=== PATIENT | male | born 1955 | race Caucasian/White ===

== ENCOUNTER → 2018-07-11 08:43 | Outpatient (CLI) | payer BC ==
--- NOTE | ~2018-07-11 | ST ---
PATIENT:ОЛЬГА MILLARD MEDICAL RECORD: [id number] SEX: M LOCATION:[facility] ORDER #: ADMISSION DATE: 07/11/18 AGE OF PATIENT: 63 REFERRING PHYSICIAN: INTERPRETING PHYSICIAN: ROHAN LINDO MD REFERRING PHYSICIAN: Mathew Odell DO TECHNOLOGIST: ELENA Mckeon/RIGHT Jeremi (N) CLINICIAN: Noelle Bennett RN CLINICAL INDICATIONS: 1. Angina. 2. Shortness of breath. 3. Hypertension. 4. Hyperlipidemia. PHARMACOLOGIC STRESS PROCEDURE: 1. The patient performed a chemical stress test at rest receiving 0.4 mg Lexiscan by rapid IV injection over 10-15 seconds. 2. This was followed by 5 mL of normal saline both administered by above Clinician. 3. The tracer was administered IV 10-20 second post saline flush per protocol by Technologist. 4. The heart rate was 49 at baseline and was 74 at peak infusion. 5. The blood pressure response was normal. B/P was 114/74 at baseline, 139/78 at peak infusion. 6. The patient had no complaints of angina or anginal equivalent discomfort. 7. The patient had no complaints of shortness of breath following injection of Lexiscan. 8. No significant arrhythmias were observed. 9. The electrocardiogram demonstrated no ST changes suggestive of ischemia. 10. The electrocardiogram demonstrated a normal response to Lexiscan. 11. Normal response to Lexiscan pharmacological stress testing. REST STUDY: DATE: 07/11/18 HOUR: 09:15 RADIOISOTOPE: Cardiolite 99m Tc VOLUME: 0.6 mL ACTIVITY: 7.6 mCi METHOD OF ADMIN: IV SCAN STARTED: (hour) 10:20 STRESS STUDY: DATE: 07/11/18 HOUR: 10:35 RADIOISOTOPE: Cardiolite 99m Tc VOLUME: 0.6 mL ACTIVITY: 32.9 mCi METHOD OF ADMIN: IV SCAN STARTED: (hour) 11:30 GATED IMAGING: Gated SPECT reveals a preserved ejection fraction of 58% with decreased thickening and brightening throughout all segments. SPECT: SPECT imaging was performed using Cardiolite as the myocardial perfusion CARDIAC STRESS TEST [id number] ОЛЬГА MILLARD imaging agent. There is a mixed perfusion defect inferiorly, partially fixed and partially reversible. It includes the basal, mid, and apical inferior segments as well as the apex itself. There is reversibility throughout the entire defect. OVERALL IMPRESSION: 1. This is an abnormal nuclear stress test with mixed perfusion defect, partially fixed and partially reversible inferiorly and apically. 2. Gated SPECT reveals a preserved ejection fraction of 58%. 3. In this patient with ongoing symptomatology, the current scan does suggest the presence of hemodynamically significant coronary artery disease. 4. Would proceed with coronary angiography as a follow-up of this study. ROHAN LINDO MD at 6376 CC: [id number] DICTATION DATE: 07/11/18 2408 RESTAURANT TEAM MEMBER: DM 07/12/18 1402 DEP CLI 07/11/[address] [facility] [address] [place] [address]
[~2018-07-11 08:43] MED LIST: BAYER CHEWABLE81 MG PO; GLUCOPHAGE500 MG PO; HCTZ25 MG PO; LIPITOR20 MG PO; NORVASC10 MG PO; PLAVIX75 MG PO; PRINIVIL20 MG PO
[2018-07-25 14:35] VITALS: BMI 26.6
== END | disposition home or self-care (01) ==
LOC: D.HCCARDIO 08:43
DX: Z03.89 Encounter for observation for other suspected diseases and conditions ruled out (principal)

== ENCOUNTER 2018-07-25 08:06 | Outpatient (CLI) | payer BC ==
[~2018-07-25] VITALS: Ht 172.7 cm; Wt 77.3 kg
--- NOTE | ~2018-07-25 | OP ---
PATIENT NAME: ОЛЬГА MILLARD MEDICAL RECORD: [id number] :53 LOCATION:D.CAT ADMISSION DATE: SURGEON: ROHAN LINDO MD DATE OF OPERATION: 07/26/2018 PROCEDURES: 1. PTCA and stent of RCA. 2. Selective coronary angiography. INDICATION: Angina and coronary artery disease. PROCEDURE IN DETAIL: After informed consent was obtained and after detailed explanation of risks, benefits as well as alternative therapies, the patient elected to proceed with angiogram and angioplasty. The right femoral area was prepped and draped in normal sterile fashion. Right femoral artery was cannulated via modified Seldinger technique with placement of 6-Lithuanian sheath. All catheters exchanged through this sheath. FINDINGS: The right coronary has 95% to 99% stenosis of the distal RCA and the PDA at the bifurcation. The PDA was addressed with a 2.25 x 12-mm Paul and the RCA with a 2.5 x 15-mm Paul. Result was 0% residual stenosis. OVERALL IMPRESSION: Successful PTCA and of the RCA going from 99% initial stenosis to 0% residual. TRANSINT:[id number] Voice Confirmation ID: [id number] DOCUMENT ID: [id number] ROHAN LINDO MD at 1718 CC: [id number] DICTATION DATE: 07/26/18 1231 GRAPHIC EDITOR: 07/26/18 1309 DEP CLI 07/26/18 [facility] [address] [place] [address]
--- NOTE | ~2018-07-25 | DS ---
PATIENT:ОЛЬГА MILLARD :53 MEDICAL RECORD: [id number] DISCHARGE SUMMARY ADMISSION DATE: 07/25/18 DISCHARGE DATE: 07/26/18 DATE OF SERVICE: 07/26/2018 DIAGNOSES: 1. Angina. 2. Coronary artery disease. 3. Percutaneous transluminal coronary angioplasty stent of ramus intermedius and right coronary artery this admission. HOSPITAL COURSE: This is a gentleman who presents with anginal symptomatology, found to have 2-vessel coronary artery disease of the RCA and left circumflex, underwent successful PTCA stent of both territories, was discharged home with the addition of aspirin and Plavix to his medical regimen. Will follow up with [facility] in 1 month. TRANSINT:[id number] Voice Confirmation ID: [id number] DOCUMENT ID: [id number] ROHAN LINDO MD at 1718 CC: [id number] DICTATION DATE: 07/26/18 1230 TONGUER: 07/27/18 0716 DEP CLI 07/26/18 [facility] [id number] [place] [address]
--- NOTE | ~2018-07-25 | HEMODYNAMI ---
PATIENT:ОЛЬГА MILLARD MEDICAL RECORD: [id number] : 53 LOCATION:[facility] ADMISSION DATE: 07/25/18 Generatedon:07/25/20189:57 Patient name: ОЛЬГА MILLARD Patient #: [id number] SSN: : 1955 Date of study: 07/25/2018 Page: Of Hemodynamic Procedure Report Patient Data Patient Demographics Procedure consent was obtained First Name: ОЛЬГА Gender: Male Last Name: FREEMAN : 1955 Patient #: [id number] Age: 63 year(s) Race: Unknown Additional ID: [id number] Contact details Address: [address] [place] [address] rd State: [place] City: [place] Zip code: [address] Past Medical History Allergies: No known allergies Admission Admission Data Admission Date: 07/25/2018 Admission Time: 8:06 Procedure Procedure Types Cath Procedure Diagnostic Procedure LHC LHC w/Coronaries Peripheral Cath Diagnostic Procedure Residential Property Manager Peripheral Procedures Qpoba-Cmuaohq-Rwa-Off Procedure Description Procedure Date Procedure Date: 07/25/2018 Procedure Start Time: 9:38 Procedure End Time: 9:56 Procedure Staff Name Function Travis Saucedo MD Performing Physician Noelle Vizcarra RN Nurse Miguel Cabrera RN Upholstery Cleaner Dane Batista RT Monitor Venecia Espinoza RT Scrub Procedure Data Cath Procedure Fluoroscopy Diagnostic fluoroscopy Total fluoroscopy Time: 3.5 time: 3.5 min min Diagnostic fluoroscopy Total fluoroscopy dose: 720 dose: 720 mGy mGy Contrast Material Contrast Material Type Amount (ml) Isovue 300 98 Entry Location Entry Primary Successful Side Size Upsize Upsize Entry Closure Succes sful Closure Location (Fr) 1 (Fr) 2 (Fr) Remarks Device Remarks Femoral Left 5 Fr 6 Fr Exoseal artery Short Estimated blood loss: 10 ml Diagnostic catheters Device Type Used For End Catheter Placement MULTIPACK 3DRC 5Fr Procedure catheter MULTIPACK Pigtail 5 Fr Procedure catheter MULTIPACK JL 4.0 5Fr Procedure catheter Procedure Complications No complications Procedure Medications Medication Administration Route Dosage 0.9% NaCl I.V. 100 ml/hr Oxygen etCO2 Nasal cannula 2 l/min Lidocaine 2% added to field 20 Heparin Flush Bag added to field 2 bags (1000units/500ml NS) Versed I.V. 2 mg Fentanyl I.V. 100 mcg Versed I.V. 2 mg Fentanyl I.V. 25 mcg Versed I.V. 1 mg Heparin Bolus I.V. 4000 units Integrilin (Bolus I.V. 7.3 ml 2mg/ml) Plavix P.O. 600 mg Hemodynamics Rest Heart Rate: 54 (bpm) Snapshots Pre Cath Intra NCS Post Cath Vital Signs Time Heart Resp SPO2 etCO2 NIBP (mmHg) Rhythm Pain Sedation Rate (ipm) (%) (mmHg) Status Level (bpm) 9:07:23 49 19 98 36.2 140/79(92) SB 0 (11) 10(A) , No pain 9:12:22 54 11 100 42.2 146/82(124) SB 0 (11) 10(A) , No pain 9:17:36 51 18 100 39.9 148/81(123) SB 0 (11) 10(A) , No pain 9:21:45 54 11 100 28.6 139/83(117) SB 0 (11) 10(A) , No pain 9:26:04 55 15 100 18.1 134/76(104) SB 0 (11) 10(A) , No pain 9:30:14 53 33 100 35 114/74(93) SB 0 (11) 10(A) , No pain 9:34:25 50 23 99 39.2 115/64(87) SB 0 (11) 10(A) , No pain 9:38:37 47 27 99 39.2 109/66(92) SB 0 (11) 10(A) , No pain 9:42:43 48 12 99 43.7 109/61(85) SB 0 (11) 10(A) , No pain 9:46:53 48 20 98 19.6 118/65(95) SB 0 (11) 9(A) , No pain 9:50:57 48 22 98 25 102/61(86) SB 0 (11) 9(A) , No pain 9:55:02 51 27 100 39.2 107/63(88) SB 0 (11) 10(A) , No pain Medications Time Medication Route Dose Verified Delivered Reason Notes Effectiveness by by 9:00:19 0.9% NaCl I.V. 100 Travis Noelle used for ml/hr Lewis Vizcarra lead scientist 9:00:25 Oxygen etCO2 2 Travis Noelle used for Nasal l/min Lewis Vizcarra procedure cannula RN 9:00:31 Lidocaine 2% added 20ml Travis Travis for local to vial Lewis Saucedo MD anesthetic field 9:00:36 Heparin Flush added 2 Travis Travis used for Bag to bags Lewis Saucedo MD procedure (1000units/500ml field NS) 9:33:20 Versed I.V. 2 mg Travis Noelle for sedation Lewis Vizcarra RN 9:33:26 Fentanyl I.V. 100 Travis Noelle for sedation mcg Lewis Vizcarra RN 9:39:14 Versed I.V. 2 mg Travis Noelle for sedation Lewis Vizcarra RN 9:39:31 Fentanyl I.V. 25 Travis Noelle for sedation mcg Lewis Vizcarra RN 9:44:19 Versed I.V. 1 mg Travis Noelle for sedation Lewis Vizcarra RN 9:46:29 Heparin Bolus I.V. 4000 Travis Noelle for verifi ed units Lewis Vizcarra anticoagulation with Dr. THELMA Saucedo 9:47:45 Integrilin I.V. 7.3 Travis Noelle for wasted (Bolus 2mg/ml) ml Lewis Vizcarra anticoagulation 2.7mL RN 9:48:51 Plavix P.O. 600 Travis Noelle for mg Lewis Vizcarra antiplatelet RN therapy Procedure Log Time Note 8:55:36 Time tracking: Regular hours (M-F 7:00 - 5:00) 8:55:40 Plan of Care:Hemodynamics will remain stable., Cardiac rhythm will remain stable., Comfort level will be maintained., Respiratory function will remain adequate., Patient/ family verbilizes understanding of procedure., Procedure tolerated without complication., Recovers from procedure without complications.. 8:55:57 Miguel Cabrera RN sent for patient. Start room use. 8:59:45 Patient received from Pre/Post Procedure Room to CCL 1 Alert and oriented. Tansferred to table in Supine position. 8:59:46 Warm blankets applied, and darleen hugger turned on for patient comfort. 8:59:47 Correct patient and procedure confirmed by team. 8:59:48 Signed procedure consent form obtained from patient. 8:59:49 ECG and BP/O2 sat monitors applied to patient. 9:00:19 0.9% NaCl 100 ml/hr I.V. was administered by Noelle Vizcarra RN; used for procedure; 9:00:25 Oxygen 2 l/min etCO2 Nasal cannula was administered by Noelle Vizcarra RN; used for procedure; 9:00:31 Lidocaine 2% 20ml vial added to field was administered by Travis Saucedo MD; for local anesthetic; 9:00:36 Heparin Flush Bag (1000units/500ml NS) 2 bags added to field was administered by Travis Saucedo MD; used for procedure; 9:01:46 Full Disclosure recording started 9:03:31 H&P Date Dictated: 07/25/2018 New H&P dictated by physician.. 9:03:36 Pre-procedure instructions explained to patient. 9:03:37 Pre-op teaching completed and patient verbalized understanding. 9:03:39 Family in patients room. 9:03:41 Patient NPO since Midnight. 9:03:50 Patient allergic to No known allergies 9:03:53 Is the patient allergic to Iodine/contrast media? No. 9:03:59 Is patient on blood thinner?No 9:04:00 Patient diabetic? Yes. 9:04:01 If diabetic: On Metformin? Yes 9:04:04 If on Metformin: Last Dose? 07/24/2018 9:04:06 Previous problem with sedation/anesthesia? No ? 9:04:08 Snore? Yes 9:04:09 Sleep apnea? No 9:04:10 Deviated septum? No 9:04:11 Opens mouth fully? Yes 9:04:12 Sticks out tongue? Yes 9:04:16 Airway obstruction? Yes COPD 9:04:20 Dentures? Yes OUT 9:04:23 Pre procedure: right dorsailis pedis pulse 2+ Normal; easily identifiable; not easily obliterated 9:04:29 Modified Dale's test Ulnar > 7 seconds. 9:04:31 Patient pain scale 0/10 ?. 9:04:52 IV patent on arrival in left forearm with 0.9% NaCl at KVO. 9:04:56 Lab results completed and on chart. 9:05:01 Right groin area was prepped with chlora-prep and draped in sterile fashion 9:05:06 Alarms reviewed by R. N. 9:05:07 Sharps counted by scrub and verified by RFernandoN. 9:06:05 Vital chart was started 9:06:10 Rhythm: sinus bradycardia 9:06:16 Baseline sample Acquired. 9:06:38 Use device set Femoral Dx 9:06:39 ACIST Syringe (30632) opened to sterile field. 9:06:40 Bag Decanter (2002S) opened to sterile field. 9:06:41 Medline Cath Pack ([id number]) opened to sterile field. 9:06:41 DIAGNOSTIC WIRE .035 260cm J wire (852942) opened to sterile field. 9:06:43 ACIST Hand Control (15351) opened to sterile field. 9:06:43 ACIST Manifold (19152) opened to sterile field. 9:06:45 DIAGNOSTIC Multipack 5Fr catheter set (OU2254) opened to sterile field. 9:06:46 Tegaderm 4 x 4 (1626W) opened to sterile field. 9:06:47 SHEATH 5FR [place] (MUO959) opened to sterile field. 9:19:21 Physician paged 9:25:24 Zero performed for pressure channel P1 9:25:27 Zero performed for pressure channel P1 9:26:07 Procedure type changed to Cath procedure, Diagnostic procedure, LHC, LHC w/Coronaries, Peripheral Cath Diagnostic Procedure, Residential Property Manager Peripheral Procedures, Mmitv-Yuvgcxl-Rmz-Off 9:29:51 Physician arrived 9:29:51 --------ALL STOP TIME OUT------ 9:29:52 Final Timeout: patient, procedure, and site verified with staff and physician. All members of the team are in agreement. 9:29:54 Bilateral groins site verified by team. 9:29:57 Physical assessment completed. ASA score P 2 - A patient with mild systemic disease as per Travis Saucedo MD. 9:30:00 Sedation plan: IV Moderate Sedation Medication:Versed, Fentanyl 9:30:24 Pre procedure: right dorsailis pedis pulse Doppler 9:30:27 Pre procedure: left dorsailis pedis pulse 1+ Palpable, but thready & weak; easily obliterated 9:30:31 Pre procedure: right posterior tibial pulse Doppler 9:33:20 Versed 2 mg I.V. was administered by Noelle Vizcarra RN; for sedation; 9:33:26 Fentanyl 100 mcg I.V. was administered by Noelle Vizcarra RN; for sedation; 9:38:30 Procedure started. 9:38:35 Local anesthetic to left femerol artery with Lidocaine 2% by Travis Saucedo MD.INITIAL ACCESS ONLY 9:39:14 Versed 2 mg I.V. was administered by Noelle Vizcarra RN; for sedation; 9:39:17 A 5 Fr sheath was inserted into the Left Femoral artery 9:39:31 Fentanyl 25 mcg I.V. was administered by Noelle Vizcarra RN; for sedation; 9:39:32 GLIDE WIRE Super Stiff Angled 260cm (GI4659) opened to sterile field. 9:39:43 A MULTIPACK 3DRC 5Fr catheter was advanced over the wire and used for Procedure. 9:39:55 glide wire advanced for access. 9:40:03 [place] wire removed. 9:40:05 RCA angiography performed. 9:40:21 CHOICE PT Extra Support 182cm wire ([id number]) opened to sterile field. 9:40:22 INFLATOR Merit BasixCompak (QC3587) opened to sterile field. 9:40:29 Catheter exchanged over wire. 9:40:51 A MULTIPACK Pigtail 5 Fr catheter was advanced over the wire and used for Procedure. 9:41:48 LV gram done using CARMONA 9:41:50 Injector settings: Ml/sec: 10, Volume: 20, 9:41:54 EF : 60 % 9:42:01 Abdominal angiogram w/ runoff was performed. 9:42:16 Left leg runoff performed. 9:42:32 Right leg runoff performed. 9:43:07 Catheter exchanged over wire. 9:43:11 A MULTIPACK JL 4.0 5Fr catheter was advanced over the wire and used for Procedure. 9:44:19 Versed 1 mg I.V. was administered by Noelle Vizcarra RN; for sedation; 9:44:28 LCA angiography performed. 9:46:29 Heparin Bolus 4000 units I.V. was administered by Noelle Vizcarra RN; for anticoagulation; verified with Dr. Saucedo 9:46:45 Catheter removed. 9:46:51 SHEATH 6FR [place] (KMP208) opened to sterile field. 9:47:03 Sheath upsized to a 6 Fr Short. 9:47:13 GUIDE 6FR XBLAD 3.5 catheter ([id number]) opened to sterile field. 9:47:22 6 Fr xblad 3.5 guide catheter was inserted over the wire 9:47:45 Integrilin (Bolus 2mg/ml) 7.3 ml I.V. was administered by Noelle Vizcarra RN; for anticoagulation; wasted 2.7mL 9:47:59 choice pt es wire advanced. 9:48:51 Plavix 600 mg P.O. was administered by Noelle Vizcarra RN; for antiplatelet therapy; 9:49:20 Wire advanced across lesion. 9:49:22 Place stent Inflation Number: 1 A NICHOLE RX 3.0 x 08 stent ([id number]) was prepped and advanced across the Ramus. The stent was deployed at 13 VEL for 0:10 (min:sec). 9:49:50 Inflation number: 2 The stent balloon was then re-inflated across the Ramus to 7 VEL for 0:10 (min:sec). 9:50:16 Stent catheter was removed intact over wire. 9:51:58 Place stent Inflation Number: 3 A NICHOLE RX 2.5 x 12 stent ([id number]) was prepped and advanced across the Ramus. The stent was deployed at 13 VEL for 0:10 (min:sec). 9:52:03 Stent catheter was removed intact over wire. 9:52:04 Wire removed. 9:52:04 Guide catheter removed. 9:52:09 EXOSEAL 6Fr (EX600) opened to sterile field. 9:52:17 Sheath removed intact; hemostasis achieved with Exoseal to the Left Femoral artery. 9:52:20 Procedure ended.(Physican Out) 9:54:36 Fluoroscopy time 03.50 minutes. 9:54:46 Fluoroscopy dose: 720 mGy 9:54:46 Flurop Dose total: 720 9:54:51 Contrast amount:Isovue 300 98ml. 9:54:52 Sharps counted by scrub and verified by R.N. 9:54:53 Insertion/operative site no bleeding no hematoma. 9:54:56 Post-op/insertion site Left Femoral artery dressed using a 4 x 4 and Tegaderm. 9:55:00 Post left femerol artery:stable, soft, clean and dry 9:55:03 Post Procedure Pulses reassessed and unchanged 9:55:05 Post-procedure physical assessment completed. ASA score P 2 - A patient with mild systemic disease as per Travis Saucedo MD. 9:55:07 Post procedure rhythm: unchanged. 9:55:16 Estimated blood loss: 10 ml 9:55:18 Post procedure instruction explained to patient.Patient verbalizes understanding. 9:56:29 Procedure Complication : No complications 9:56:32 Vital chart was stopped 9:56:44 See physician's report for complete and final results. 9:56:45 Report given to PCU. 9:56:47 Patient transfered to PCU with Stretcher. 9:56:49 Procedure ended. 9:56:49 Full Disclosure recording stopped 9:56:54 End room use (Document Last) Intervention Summary Intervention Notes Time ActionType Lesion and Equipment Used Action# Pressure Duration Attributes 9:49:22 Place stent Ramus NICHOLE RX 3.0 x 1 13 00:10 08 stent ([id number]) 9:49:50 Reinflate Ramus NICHOLE RX 3.0 x 2 7 00:10 stent 08 stent balloon ([id number]) 9:51:58 Place stent Ramus NICHOLE RX 2.5 x 3 13 00:10 12 stent ([id number]) Device Usage Item Name Manufacture Quantity Catalog Number [facility] Part Current M inimal Lot# / Charge Number Stock Stock Serial# Code ACIST Syringe Acist 1 90715 985986 632279 096947 2 0 (99461) Medical Systems Inc Bag Decanter Microtek 1 2001S 344906 55891 344044 5 () Medical Inc. Medline Cath Medline 1 [id number] 630077 54044 678054 5 Pack ([id number]) DIAGNOSTIC St [place]ron 1 549011 749812 478597 090560 3 0 WIRE .035 260cm J wire (760661) ACIST Hand Acist 1 26684 971481 219338 816139 5 Control Medical (84730) Systems Inc ACIST Manifold Acist 1 81072 694836 889570 483711 5 (43265) Medical Systems Inc DIAGNOSTIC Cardinal 1 DS9739 592415 36508 706484 3 0 Multipack 5Fr Health catheter set (KK1503) Tegaderm 4 x 4 3M 1 1626W 881223 358804 584614 5 (1626W) SHEATH 5FR Terumo 1 EOZ573 009133 932646 069767 4 0 [place] (IMI499) GLIDE WIRE Terumo 1 TO5986 255219 546823 219397 5 Super Stiff Angled 260cm (KW3176) MULTIPACK 3DRC Cardinal 1 785604 5 5Fr catheter Health CHOICE PT [place] 1 [id number] 422861 001169 734784 5 Extra Support Scientific 182cm wire ([id number]) INFLATOR Merit Merit 1 AN3413 400534 474667 904773 1 5 [employer] [facility] (KJ3233) MULTIPACK Cardinal 1 677680 5 Pigtail 5 Fr Health catheter MULTIPACK JL Cardinal 1 143950 5 4.0 5Fr Health catheter SHEATH 6FR Terumo 1 PBT777 222138 450981 862830 4 0 [place] (CET517) GUIDE 6FR Cardinal 1 [id number] 721761 229782 206341 1 0 XBLAD 3.5 Health catheter ([id number]) NICHOLE RX 3.0 x Medtronic 1 [id number] 409915 2766362 979852 5 [id number] 08 stent ([id number]) NICHOLE RX 2.5 x Medtronic 1 [id number] 689406 3790349 388992 5 [id number] 12 stent ([id number]) EXOSEAL 6Fr Cardinal 1 EX600 096876 081520 121737 1 0 (EX600) Health Signature Audit [place] Stage Time Signature Unsigned Intra-Procedure 07/25/2018 Dane Batista 9:57:38 AM RT(R) Signatures Monitor : Dane Batista RT Signature : Date : Time : [facility] [address] [place] [address]
--- NOTE | ~2018-07-25 | OP ---
PATIENT NAME: ОЛЬГА MILLARD MEDICAL RECORD: [id number] :53 LOCATION:D. D.2123 ADMISSION DATE: SURGEON: ROHAN LINDO MD DATE OF OPERATION: 07/25/2018 PROCEDURES: 1. PTCA stent ramus intermedius. 2. Left heart catheterization. 3. Selective coronary angiography. 4. Left ventriculogram. INDICATION: Angina and coronary artery disease. PROCEDURE IN DETAIL: After informed consent was obtained and after a detailed description of risks, benefits as well as alternative therapies, the patient elected to proceed with angiogram and angioplasty. The left femoral area was prepped and draped in normal sterile fashion. Left femoral artery was cannulated via modified Seldinger technique with placement of 6-Tuval[place] sheath. All catheters exchanged through this sheath. FINDINGS: Left ventriculogram was performed in standard 30-degree CARMONA view, reveals good cardiac wall motion throughout all segments. Overall ejection fraction estimated 60%. SELECTIVE CORONARY ANGIOGRAPHY: 1. Left main has no significant angiographic disease. 2. Left anterior descending has moderate irregularities, but no flow-limiting stenosis. 3. The left circumflex has an early obtuse marginal or ramus intermedius that is 85% stenosed at the ostium, otherwise the left circumflex has moderate irregularities, but no flow-limiting stenosis. 4. The right coronary artery has 90% stenosis in the mid vessel at the early bifurcation of the PLV and PDA. SOLDER SPRAYER STENT OF THE RAMUS INTERMEDIUS: The stent used is a 3.0 x 8 mm Strong, followed by a 2.5 x 12 mm Strong. Result was 0% residual stenosis. OVERALL IMPRESSION: Successful percutaneous transluminal coronary angioplasty stent of the left circumflex, ramus intermedius going from 85% initial stenosis to 0% residual. PLAN: PTCA stent of the RCA in the a.m. TRANSINT:[id number] Voice Confirmation ID: [id number] DOCUMENT ID: [id number] ROHAN LINDO MD at 1704 CC: [id number] DICTATION DATE: 07/25/18 1001 WEB PRODUCTION MANAGER: 07/25/18 1046 [facility] [address] [place] [address]
--- NOTE | ~2018-07-25 | HEMODYNAMI ---
PATIENT:ОЛЬГА MILLARD MEDICAL RECORD: [id number] : 53 LOCATION:[address] ADMISSION DATE: 07/25/18 Generatedon:07/26/201812:29 Patient name: ОЛЬГА MILLARD Patient #: [id number] SSN: : 1955 Date of study: 07/26/2018 Page: Of Hemodynamic Procedure Report Patient Data Patient Demographics Procedure consent was obtained First Name: ОЛЬГА Gender: Male Last Name: FREEMAN : 1955 Patient #: [id number] Age: 63 year(s) Race: Unknown Additional ID: [id number] Contact details Address: [address] [place] [address] rd State: [place] City: [place] Zip code: [address] Past Medical History Allergies: No known allergies Admission Admission Data Admission Date: 07/25/2018 Admission Time: 8:06 Admit Source: Other Room #: 2123 Procedure Procedure Types Cath Procedure Diagnostic Procedure LHC LH w/Coronaries Sedation Charges Moderate Sedation up to 15 minutes PCI Procedure Coronary Stent Coronary Stent Initial Coronary Stent Additional Procedure Description Procedure Date Procedure Date: 07/26/2018 Procedure Start Time: 12:10 Procedure End Time: 12:25 Procedure Staff Name Function Travis Saucedo MD Performing Physician Mariam Burrell RT Monitor Jeffrey Ochoa RN Nurse Lindsay Carlson RT Scrub Procedure Data Cath Procedure Fluoroscopy Diagnostic fluoroscopy Total fluoroscopy Time: 5 time: 5 min min Diagnostic fluoroscopy Total fluoroscopy dose: 346 dose: 346 mGy mGy Contrast Material Contrast Material Type Amount (ml) Isovue 300 53 Entry Location Entry Primary Successful Side Size Upsize Upsize Entry Closure Succes sful Closure Location (Fr) 1 (Fr) 2 (Fr) Remarks Device Remarks Femoral Right 6 Fr Exoseal artery Short Estimated blood loss: 5 ml Procedure Complications No complications Procedure Medications Medication Administration Route Dosage 0.9% NaCl I.V. 100 ml/hr Oxygen etCO2 Nasal cannula 2 l/min Heparin Flush Bag added to field 2 bags (1000units/500ml NS) Lidocaine 2% added to field 20 Versed I.V. 2 mg Fentanyl I.V. 100 mcg Heparin Bolus I.V. 4000 units Nitroglycerin IC/IA I.C. 200 mcg Hemodynamics Rest Heart Rate: 57 (bpm) Snapshots Pre Cath Intra NCS Post Cath Vital Signs Time Heart Resp SPO2 etCO2 NIBP (mmHg) Rhythm Pain Sedation Rate (ipm) (%) (mmHg) Status Level (bpm) 11:57:32 71 20 100 35.2 161/113(131) NSR 0 (11) 10(A) , No pain 12:01:54 58 16 100 34.4 174/85(148) NSR 0 (11) 10(A) , No pain 12:06:10 53 13 100 20.2 145/78(115) NSR 0 (11) 10(A) , No pain 12:10:28 49 15 100 16.4 135/76(107) NSR 0 (11) 10(A) , No pain 12:14:40 52 12 99 25.4 130/73(98) NSR 0 (11) 10(A) , No pain 12:19:48 56 13 100 11.9 161/91(145) NSR 0 (11) 9(A) , No pain 12:24:03 62 14 99 32.2 109/65(81) NSR 0 (11) 9(A) , No pain Medications Time Medication Route Dose Verified Delivered Reason Notes Effectiveness by by 12:01:42 0.9% NaCl I.V. 100 Jeffrey Jeffrey Per physician ml/hr Gabriela Ochoa RN RN 12:01:51 Oxygen etCO2 2 Jeffrey Jeffrey Per physician Nasal l/min Gabriela Ochoa cannula RN RN 12:02:03 Heparin Flush added 2 Jeffrey Jeffrey used for Bag to bags Gabriela Ochoa procedure (1000units/500ml field RENEE RN NS) 12:02:23 Lidocaine 2% added 20ml Jeffrey Jeffrey for local to vial Gabriela Ochoa anesthetic field RENEE RN 12:12:04 Fentanyl I.V. 100 Jeffrey Jeffrey for sedation [facility] Gabriela Ochoa RN RN 12:12:04 Versed I.V. 2 mg Jeffrey Jeffrey for sedation Gabriela Ochoa RN RN 12:12:13 Heparin Bolus I.V. 4000 Jeffrey Jeffrey for units Gabriela Ochoa anticoagulation RN RN 12:12:28 Nitroglycerin I.C. 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 Start room use. 11:50:27 Patient received from Med II to CCL 2 Alert and oriented. Tansferred to table in Supine position. 11:50:29 Warm blankets applied, and darleen hugger turned on for patient comfort. 11:50:32 Correct patient and procedure confirmed by team. 11:50:35 Signed procedure consent form obtained from patient. 11:50:37 ECG and BP/O2 sat monitors applied to patient. 11:55:26 Vital chart was started 11:55:28 Baseline sample Acquired. 11:56:34 Rhythm: sinus rhythm 11:56:36 Full Disclosure recording started 11:56:42 H&P Date Dictated: 07/26/2018 Within 30 days and on chart.. 11:56:43 Pre-procedure instructions explained to patient. 11:56:44 Pre-op teaching completed and patient verbalized understanding. 11:56:45 Family in waiting room. 11:56:47 Patient NPO since Midnight. 11:56:49 Is the patient allergic to Iodine/contrast media? No. 11:56:50 Was the patient premedicated? No 11:56:51 Is patient on blood thinner?Yes 11:56:54 ACC The patient was administered the following blood thiners within the last 24 hours: ACCPlavix 11:58:37 Patient diabetic? Yes. 11:58:39 If diabetic: On Metformin? Yes 11:58:42 If on Metformin: Last Dose? 07/24/2018 11:58:45 Previous problem with sedation/anesthesia? No ? 11:58:48 Snore? Yes 11:58:49 Sleep apnea? No 11:58:50 Deviated septum? No 11:58:51 Opens mouth fully? Yes 11:58:52 Sticks out tongue? Yes 11:58:54 Airway obstruction? No ? 11:58:57 Dentures? Yes out 11:59:21 Pre procedure: right dorsailis pedis pulse 2+ Normal; easily identifiable; not easily obliterated 11:59:23 Pre procedure: left dorsailis pedis pulse 2+ Normal; easily identifiable; not easily obliterated 11:59:29 Patient pain scale 0/10 ?. 11:59:34 IV patent on arrival in left hand with 0.9% NaCl at O. 11:59:36 Lab results completed and on chart. 11:59:42 Right groin area was prepped with chlora-prep and draped in sterile fashion 11:59:43 Alarms reviewed by R. N. 11:59:43 Sharps counted by scrub and verified by R.N. 12:01:42 0.9% NaCl 100 ml/hr I.V. was administered by Jeffrey Ochoa RN; Per physician; 12:01:48 Use device set Femoral Dx 12:01:50 ACIST Syringe (71108) opened to sterile field. 12:01:50 Bag Decanter (2002S) opened to sterile field. 12:01:51 Oxygen 2 l/min etCO2 Nasal cannula was administered by Jeffrey Ochoa RN; Per physician; 12:01:51 Medline Cath Pack ([id number]) opened to sterile field. 12:01:52 DIAGNOSTIC WIRE .035 260cm J wire (910112) opened to sterile field. 12:01:55 ACIST Hand Control (25590) opened to sterile field. 12:01:57 ACIST Manifold (86318) opened to sterile field. 12:02:03 Heparin Flush Bag (1000units/500ml NS) 2 bags added to field was administered by Jeffrey Ochoa RN; used for procedure; 12:02:04 Tegaderm 4 x 4 (1626W) opened to sterile field. 12:02:23 Lidocaine 2% 20ml vial added to field was administered by Jeffrey Ochoa RN; for local anesthetic; 12:02:34 SHEATH 6FR [place] (UXO074) opened to sterile field. 12:02:38 INFLATOR Merit BasixCompak (ZM8963) opened to sterile field. 12:02:39 CHOICE PT Extra Support 182cm wire ([id number]) opened to sterile field. 12::13 --------ALL STOP TIME OUT------ 12::13 Final Timeout: patient, procedure, and site verified with staff and physician. All members of the team are in agreement. 12::17 Right groin site verified by team. 12:09:20 Physical assessment completed. ASA score P 2 - A patient with mild systemic disease as per Travis Saucedo MD. 12::23 Sedation plan: IV Moderate Sedation Medication:Versed, Fentanyl 12:09:54 Procedure started. 12::17 Local anesthetic to right femoral artery with Lidocaine 2% by Travis Saucedo MD.INITIAL ACCESS ONLY 12:10:31 A 6 Fr Short sheath was inserted into the Right Femoral artery 12:11:00 GUIDE 6FR AR 2.0 SH catheter ([id number]) opened to sterile field. 12:11:46 6 Fr ar 2 sh guide catheter was inserted over the wire 12:12:04 Fentanyl 100 mcg I.V. was administered by Jeffrey Ochoa RN; for sedation; 12:12:04 Versed 2 mg I.V. was administered by Jeffrey Ochoa RN; for sedation; 12:12:13 Heparin Bolus 4000 units I.V. was administered by Jeffrey Ochoa RN; for anticoagulation; 12:12:28 Nitroglycerin IC/IA 200 mcg I.C. was administered by Travis Saucedo MD; for vasodilation; 12:12:55 choice pt wire advanced. 12:12:58 Wire advanced across lesion. 12:14:01 Place stent Inflation Number: 1 A NICHOLE RX 2.5 x 15 stent ([id number]) was prepped and advanced across the Mid RCA. The stent was deployed at 13 VEL for 0:10 (min:sec). 12:14:31 CHOICE PT Extra Support 182cm wire ([id number]) opened to sterile field. 12:15:28 Stent catheter was removed intact over wire. 12:16:04 choice pt wire advanced. 12:17:38 Inflate balloon Inflation number: 1 A EUPHORA 2.0 x 10 Balloon ([id number]) was prepped and advanced across the R PDA, then inflated to 11 VEL for 0:10 (min:sec). 12:18:23 Inflation number: 2 The EUPHORA 2.0 x 10 Balloon ([id number]) was reinflated across the R PDA, to 15 VEL for 0:10 (min:sec). 12:20:26 Place stent Inflation Number: 3 A NICHOLE RX 2.25 x 12 stent ([id number]) was prepped and advanced across the R PDA. The stent was deployed at 11 VEL for 0:10 (min:sec). 12:21:06 Stent catheter was removed intact over wire. 12:22:02 choice pt wire removed from PDA 12::33 Inflation number: 2 The stent balloon was then re-inflated across the Mid RCA to 15 VEL for 0:10 (min:sec). 12:23:16 Balloon removed over the wire. 12:23:17 Wire removed. 12:23:17 Guide catheter removed. 12:23:34 EXOSEAL 6Fr (EX600) opened to sterile field. 12:24:02 Sheath removed intact; hemostasis achieved with Exoseal to the Right Femoral artery. 12:24:03 Procedure ended.(Physican Out) 12:24:36 Fluoroscopy time 05.00 minutes. 12:24:40 Fluoroscopy dose: 346 mGy 12:24:40 Flurop Dose total: 346 12:24:44 Contrast amount:Isovue 300 53ml. 12:24:45 Sharps counted by scrub and verified by R.N. 12:24:47 Insertion/operative site no bleeding no hematoma. 12:24:53 Post-op/insertion site Right Femoral artery dressed using a 4 x 4 and Tegaderm. 12:24:56 Post right femoral artery:stable 12:24:58 Post Procedure Pulses reassessed and unchanged 12:25:04 Post procedure rhythm: unchanged. 12:25:06 Estimated blood loss: 5 ml 12:25:08 Post procedure instruction explained to patient.Patient verbalizes understanding. 12:25:08 Patient needs reinforcement of post procedure teaching. 12:25:31 Procedure type changed to Cath procedure, Diagnostic procedure, LHC, LHC w/Coronaries, Sedation Charges, Moderate Sedation up to 15 minutes, PCI procedure, Coronary Stent, Coronary Stent Initial, Coronary Stent Additional 12::33 Procedure and supply charges have been captured, reviewed, submitted and are correct. 12:25:37 Procedure Complication : No complications 12:25:40 Vital chart was stopped 12:25:40 See physician's report for complete and final results. 12::43 Report given to Pre/Post Procedure Room. 12::46 Patient transfered to Pre/Post Procedure Room with Stretcher. 12:25:48 Procedure ended. 12:25:48 Full Disclosure recording stopped 12:25:54 ACC-PCI Only Patient was given prescriptions, or instructed by Travis Saucedo MD to start/continue the following medications upon discharge: Plavix 12:25:55 End room use (Document Last) Intervention Summary Intervention Notes Time ActionType Lesion and Equipment Used Action# Pressure Duration Attributes 12:14:01 Place stent Mid RCA NICHOLE RX 2.5 x 1 13 00:10 15 stent ([id number]) 12:17:38 Inflate R PDA EUPHORA 2.0 x 1 11 00:10 balloon 10 Balloon ([id number]) 12:18:23 Reinflate R PDA EUPHORA 2.0 x 2 15 00:10 balloon 10 Balloon ([id number]) 12:20:26 Place stent R PDA NICHOLE RX 2.25 x 3 11 00:10 12 stent ([id number]) 12:22:33 Reinflate Mid RCA NICHOLE RX 2.25 x 2 15 00:10 stent 12 stent balloon ([id number]) Device Usage Item Name Manufacture Quantity Catalog Number Hospital Part Current M inimal Lot# / Charge Number Stock Stock Serial# Code ACIST Syringe Acist 1 51316 828331 188821 081207 2 0 (99995) Medical Systems Inc Bag Decanter Microtek 1 217936 70631 336400 5 () Medical Inc. Medline Cath Medline 1 [id number] 759505 29605 965680 5 Pack ([id number]) DIAGNOSTIC St Myron 1 061576 626449 700495 909397 3 0 WIRE .035 260cm J wire (981308) ACIST Hand Acist 1 85839 918356 130710 324001 5 Control Medical (36226) Systems Inc ACIST Manifold Acist 1 36884 689923 426173 003097 5 (85264) Medical Systems Inc Tegaderm 4 x 4 3M 1 1626W 577561 954614 602006 5 (1626W) SHEATH 6FR Terumo 1 [id number] 262152 783864 588424 4 0 [place] (IRZ601) INFLATOR Merit Merit 1 MQ5100 903160 789481 005135 1 5 Big Contacts ([id number]) CHOICE PT [place] 2 [id number] 383002 506616 102717 5 Extra Support Scientific 182cm wire ([id number]) GUIDE 6FR AR Medtronic 1 [id number] 769358 28545 903373 1 2.0 SH catheter ([id number]) NICHOLE RX 2.5 x Medtronic 1 [id number] 117602 3023857 813426 5 [id number] 15 stent ([id number]) EUPHORA 2.0 x Medtronic 1 [id number] 722011 410287 362857 5 [id number] 10 Balloon ([id number]) NICHOLE RX 2.25 x Medtronic 1 [id number] 461573 5536280 664080 5 [id number] 12 stent ([id number]) EXOSEAL 6Fr Cardinal 1 EX600 002354 471943 040793 1 0 (EX600) Health Signature Audit [place] Stage Time Signature Unsigned Intra-Procedure 07/26/2018 Mariam Burrell 12:29:26 PM RT(R) Signatures Monitor : Mariam Burrell RT Signature : Date : Time : [facility] [address] [place] [address]
--- NOTE | ~2018-07-25 | OP ---
PATIENT NAME: ОЛЬГА MILLARD MEDICAL RECORD: [id number] :53 LOCATION:D.M2 D.2123 ADMISSION DATE: SURGEON: ROHAN LINDO MD DATE OF OPERATION: 07/25/2018 PROCEDURE: 1. Aortofemoral runoff. 2. Abdominal aortography. INDICATION: Claudication and peripheral vascular disease. PROCEDURE IN DETAIL: After informed consent was obtained and after a detailed description of the risks, benefits as well as alternative therapies, the patient elected to proceed with angiogram and aortofemoral runoff. The left femoral area has a preexisting sheath. All catheters exchanged through this sheath. FINDINGS: The abdominal aortography was performed. The catheter was pulled down for aortofemoral runoff. Abdominal aortography reveals no significant abdominal aortic disease, no renal artery stenosis. No dissection or aneurysm formation. RIGHT LEG: A. Iliac: The common internal and external iliacs have moderate irregularities, but no flow-limiting stenosis. B. Femoral system: The common and deep femoral are widely patent. Superficial femoral has a long area of total occlusion from the proximal vessel reconstituting to the distal vessel. The distal SFA is patent. Popliteal and infrapopliteal vessels are patent, although diffusely diseased, giving 3-vessel runoff to the foot. LEFT LEG: A. Iliac: The common internal and external iliacs have moderate irregularities, but no flow-limiting stenosis. B. Femoral system: The common and deep femoral are widely patent. Superficial femoral has a long area of total occlusion in the proximal vessel. The vessel reconstitutes via collaterals off the deep femoral system in the distal superficial femoral. This does not appear to be a good vessel. It has a long area of occlusion as well, extending into the popliteal. The distal popliteal does then appear to be patent and there does appear to be at least 2-vessel runoff to the foot. OVERALL IMPRESSION: Significant disease of the SFAs bilaterally. The right is more amenable to femoral, popliteal surgery secondary to occlusion of the distal SFA and proximal popliteal on the left, but both are amenable to femoral popliteal bypass graft surgery. TRANSINT:[id number] Voice Confirmation ID: [id number] DOCUMENT ID: [id number] OPERATIVE REPORT [id number] FREEMANОЛЬГА PRYOR ROHAN LINDO MD at 1704 CC: [id number] DICTATION DATE: 07/25/18 1001 SALESPERSON SURGICAL APPLIANCES: 07/25/18 1047 REG [facility] [address] [place] [address]
[2018-07-25] MEDS ORDERED: LIPITOR20 MG PO (08:30)
[2018-07-25] MEDS ORDERED: GLUCOPHAGE500 MG PO (08:31)
[2018-07-25] MEDS ORDERED: PRINIVIL20 MG PO (08:32)
[2018-07-25] MEDS ORDERED: NORVASC10 MG PO (08:32)
[2018-07-25] MEDS ORDERED: HCTZ25 MG PO (08:32)
[2018-07-25 08:44] VITALS: BP 126/70; BMI 26.6
[2018-07-25 09:00] LABS: BASOPHILS 0.4 % (0-2); EOSINOPHILS 2.5 % (0-7); HEMATOCRIT 47.3 % (42.0-54.0); HEMOGLOBIN 16.3 g/dL (13.5-17.5); IMMATURE GRANULOCYTES 0.2 % (0-5); LYMPHOCYTES 20.4 % (15-50); MCH 31.2 pg (26.0-34.0); MCHC 34.5 g/dL (31.0-37.0); MCV 90.6 fL (80.0-100.0); MEAN PLATELET VOLUME 11.2 fL (7.4-10.4); MONOCYTES 10.5 % (2-11); PLATELET COUNT 164 10x3/uL (130-400); RBC 5.22 10x6/uL (4.20-6.10); RDW 13.7 % (11.5-14.5); WBC 9.1 10x3/uL (4.8-10.8)
[2018-07-25 09:23] LABS: CALC OSMOLALITY 277 mosm/kg (275-300); CALCIUM 9.3 mg/dL (8.5-10.1); CARBON DIOXIDE 31.2 mmol/L (21.0-32.0); CHLORIDE - SERUM 101 mmol/L (98-107); GLUCOSE 115 mg/dL (74-106); POTASSIUM - SERUM 4.4 mmol/L (3.5-5.1); SODIUM 137 mmol/L (136-145); UREA NITROGEN 20 mg/dL (7-18); eGFR NON AFRICAN AMERICAN 80 mL/min (90-120)
[2018-07-25 11:08] VITALS: BP 127/66
[2018-07-25 14:35] VITALS: BP 127/66; Ht 172.7 cm; Wt 77.3 kg
[2018-07-25 20:48] VITALS: BP 110/55
[2018-07-26 01:06] VITALS: BP 121/55
[2018-07-26 05:11] VITALS: BP 149/80
[2018-07-26 07:57] VITALS: BP 163/80
[2018-07-26 11:30] VITALS: BP 155/72
[2018-07-26] MEDS ORDERED: BAYER CHEWABLE81 MG PO (12:50)
[2018-07-26] MEDS ORDERED: PLAVIX75 MG PO (12:50)
== END 2018-07-26 16:30 | disposition home or self-care (01) ==
LOC: D.M2 08:06 → D.CATH 08:06 → D.M2 10:15 → D.CLR 07-26 12:46 → D.CATH 07-26 16:30
PROVIDERS: Internal Medicine Interventional Cardiology
DX: I25.119 Atherosclerotic heart disease of native coronary artery with unspecified angina pectoris (principal); I70.213 Atherosclerosis of native arteries of extremities with intermittent claudication, bilateral legs; Z01.812 Encounter for preprocedural laboratory examination